=== PATIENT | male | born 1955 | race Caucasian/White ===

== ENCOUNTER 2017-06-20 12:58 | Emergency (ER) | payer OTHER ==
[2017-06-20] MEDS ORDERED: RX INFO: IV CONTRAST WAS GIVEN 1 EACH MISC MISCELLANE PRN (13:03)
[2017-06-20] MEDS ORDERED: DIPH,PERTUS(ACELL)TETVAC-LF 0.5 ML VIAL IM ONE (13:11)
[2017-06-20 13:18] LABS: Glucose,Whole Blood 128 mg/dL (75-99)
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
[2017-06-20 13:28] LABS: ALT 72 U/L (21-72); AST 43 U/L (17-59); Alcohol <10 mg/dL; Alkaline Phosphatase 70 U/L (38-126); Amylase 34 U/L (30-110); Anion Gap 10 mmol/L; Blood Urea Nitrogen 18 mg/dL (9-20); Calcium 9.1 mg/dL (8.4-10.2); Carbon Dioxide 25 mmol/L (22-30); Chloride 106 mmol/L (98-107); Glucose 132 mg/dL (74-99); Non-African American GFR(MDRD) >60 (>60 ml/min/1.73 sqM); Potassium 3.7 mmol/L (3.5-5.1); Sodium 141 mmol/L (137-145); Total Bilirubin 0.5 mg/dL (0.2-1.3); Total Protein 6.9 g/dL (6.3-8.2)
[2017-06-20 13:29] LABS: Partial Thromboplastin Time 22.6 sec (22.0-30.0); Prothrombin Time 10.1 sec (9.0-12.0); WBC 7.2 k/uL (3.8-10.6)
[2017-06-20 13:30] LABS: Basophils % (A) 1 %; CH 30.6; CHCM 36.1; Eosinophils # (A) 0.3 k/uL (0-0.7); Eosinophils % (A) 4 %; HCT 41.7 % (39.0-53.0); HDW 2.98; Luc # (Auto) 0.15; Luc % (Auto) 2; Lymphocytes # (A) 1.2 k/uL (1.0-4.8); Lymphocytes % (A) 17 %; MCH 30.4 pg (25.0-35.0); MCHC 35.9 g/dL (31.0-37.0); MCV 84.9 fL (80.0-100.0); Mean Platelet Volume 8.1; Monocytes # (A) 0.5 k/uL (0-1.0); Monocytes % (A) 6 %; Neutrophils # (A) 5.1 k/uL (1.3-7.7); Neutrophils % (A) 71 %; RBC 4.92 m/uL (4.30-5.90); RDW 13.3 % (11.5-15.5); WBC (Perox) 7.55
[2017-06-20 13:34] LABS: Creatine Kinase 203 U/L (55-170)
[2017-06-20] MEDS ORDERED: HYDROmorphone 1 MG/ML 1 ML SYRINGE IVP STA (13:44)
[2017-06-20 13:47] LABS: Creatine Kinase MB 3.6 ng/mL (0.0-2.4); Troponin I <0.012 ng/mL (0.000-0.034)
[2017-06-20] MEDS ORDERED: ceFAZolin 1,000 MG in DEXTROSE/WATER 1 50ML.BAG IVPB STA (14:17)
[2017-06-20 14:33] LABS: Appearance,Urine Clear (Clear); Bilirubin,Urine Negative (Negative); Glucose,Urine (UA) Negative (Negative); Ketones,Urine Negative (Negative); Leukocyte Esterase,Urine Negative (Negative); Mucus,Urine Rare /hpf; Nitrite,Urine Negative (Negative); PH, Urine 5.5 (5.0-8.0); Particle Count 2025; Protein,Urine Trace (Negative); RBC,Urine 154 /hpf (0-5); Specific Gravity,Urine 1.016 (1.001-1.035); UA Billing (MACRO vs. MICRO) MICRO
--- NOTE | 2017-06-20 14:51 | XR ---
Exam: Left hand complete 4 views left hand were obtained. FINDINGS: There is a complete minimally displaced fracture of the distal aspect of the proximal phalanx of the fifth digit. Soft tissue swelling is noted at this location. No radiopaque foreign bodies are identif ied. IMPRESSION: Fracture the distal aspect of the proximal phalanx of the fifth digit.
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
[2017-06-20 16:49] VITALS: BP 160/91; PULSE 57; RESP 18; TEMP 97.5
== END 2017-06-20 16:50 | disposition home or self-care (01) ==
LOC: EC 12:58
DX: S02.2XXA Fracture of nasal bones, initial encounter for closed fracture (principal); S62.617A Displaced fracture of proximal phalanx of left little finger, initial encounter for closed fracture; S01.21XA Laceration without foreign body of nose, initial encounter; S60.512A Abrasion of left hand, initial encounter; S29.9XXA Unspecified injury of thorax, initial encounter; R40.2412 Glasgow coma scale score 13-15, at arrival to emergency department; R31.29 Other microscopic hematuria; M47.812 Spondylosis without myelopathy or radiculopathy, cervical region; R51 Headache; M54.5 Low back pain; E78.5 Hyperlipidemia, unspecified; I10 Essential (primary) hypertension; Z79.899 Other long term (current) drug therapy; Z98.890 Other specified postprocedural states; Z23 Encounter for immunization; V53.6XXA Passenger in pick-up truck or van injured in collision with car, pick-up truck or van in traffic accident, initial encounter; Y92.410 Unspecified street and highway as the place of occurrence of the external cause
CPT/HCPCS: 36415; 93005; 86900; 86901; 80053; 82150; 82550; 82553; 83605; 83690; 84484; 85025; 85610; 85730; 86850; 81001; 80306; 80320; 71010; 72170; 73130; 72125; 70486; 70450; 71260; 74177; 90715; 99285; 96365; 96375; 12013; 90471; J1170; Q9967; J0690